=== PATIENT | male | born 1965 | race African-American/Black ===

== ENCOUNTER 2017-10-13 11:35 | Inpatient (IN) | payer BC, OTHER ==
[~2017-10-13] VITALS: Ht 180.3 cm; Wt 90.7 kg
--- NOTE | 2017-10-13 12:10 | NUR ---
PRE-ADMISSION NOTE Pt is a 52 y/o M, being admitted for ETOH withdrawal. Received pt at intake, A/Ox4, respirations even and unlabored. Initial VS are BP: 183/106, HR 77, RR:18, O2sat: 97%, T:97.7. Pt is sitting in intake room, with beads of sweat on forehead, appears withdrawn, soft spoken, appears anxious and restless, intermittently shaking his legs. Pt reports allergies to PCN. 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 Denies hx of SZ. Pt reports HX of psych hospitalization due to depression for 5 days in 2017. Pt reports he is currently homeless, living out of hotels and friends' homes. Pt reports he is currently unemployed. Family substance use HX of ETOH -mother, father. Pt verbalized having a good support system of family and friends. Pt reports he is currently having the following symptoms: "shakiness, heightened state of anxiety, nausea, light sensitivity, fatigue, sweating, restlessness." Pt reports having a HX of ETOH related delirium in the past. SUBSTANCE USE HX: 1. ETOH - WHISKEY (mostly), JIN and VODKA 2 pints or more and at least 12 beers daily x 6-7 months. Last use was yesterday 10/12/17 1100. First used @ 17 y/o. 2. Marijuana, smokes an 1/8th daily since age 16 y/o. Pt reports having multiple treatment hx, last being before relapse. Smokes 10 ciggarettes daily. mostly whiskey but also drink vodka and jin tx hx longest period of sobriety is 3 years in 2011 to 2015.
[2017-10-13] MEDS ORDERED: MAG HYDROX/AL HYDROX/SIMETH 30 ML LIQUID UDC PO PRN (12:30)
[2017-10-13] MEDS ORDERED: MAGNESIUM HYDROXIDE 30 ML LIQUID UDC PO PRN (12:30)
[2017-10-13] MEDS ORDERED: ONDANSETRON ODT 4 MG TAB.RAPDIS SL PRN (12:30)
[2017-10-13] MEDS ORDERED: LOPERAMIDE HCL 2 MG CAPSULE PO PRN ×2 (12:30)
[2017-10-13] MEDS ORDERED: IBUPROFEN 600 MG TABLET PO PRN (12:30)
[2017-10-13] MEDS ORDERED: LORAZEPAM 2 MG/1 ML VIAL IM PRN (12:30)
[2017-10-13] MEDS ORDERED: diphenhydrAMINE 50 MG CAPSULE PO PRN (12:30)
[2017-10-13] MEDS ORDERED: ONDANSETRON 4 MG/2 ML VIAL IM PRN (12:30)
[2017-10-13] MEDS ORDERED: 5 DAY TAPER VALIUM-SERENITY PROTOCOL PO PRN (12:30)
[2017-10-13] MEDS ORDERED: ACETAMINOPHEN 325 MG TABLET PO PRN (12:30)
[2017-10-13] MEDS ORDERED: LORAZEPAM 1 MG TABLET PO PRN ×2 (12:30)
[2017-10-13] MEDS ORDERED: MIRALAX 17 GM POWD.PACK PO PRN (12:30)
[2017-10-13] MEDS ORDERED: DICYCLOMINE HCL 20 MG TABLET PO PRN (12:30)
[2017-10-13 12:41] LABS: BASOPHILS # (AUTO) 0.1 K/uL (0.0-8.0); BASOPHILS % (AUTO) 1.1 % (0.0-2.0); EOSINOPHILS % (AUTO) 0.3 % (0.0-7.0); HEMATOCRIT 44.9 % (36.7-47.1); HEMOGLOBIN 14.9 g/dL (12.5-16.3); LYMPHOCYTES # (AUTO) 1.1 K/uL (20.0-40.0); LYMPHOCYTES % (AUTO) 19.6 % (20.5-51.5); MEAN CORPUSCULAR HEMOGLOBIN 28.8 uug (23.8-33.4); MEAN CORPUSCULAR HGB CONC 33 g/dL (32.5-36.3); MEAN CORPUSCULAR VOLUME 86.8 fL (73.0-96.2); MONOCYTES # (AUTO) 0.5 K/uL (2.0-10.0); MONOCYTES % (AUTO) 8.9 % (0.0-11.0); NEUTROPHILS # (AUTO) 3.9 K/uL (1.8-8.9); NEUTROPHILS % (AUTO) 70.1 % (38.5-71.5); PLATELET COUNT (AUTO) 243 K/uL (152-348); RED BLOOD CELL COUNT(AUTO) 5.18 MIL/uL (4.06-5.63); WHITE BLOOD COUNT (AUTO) 5.5 K/uL (3.6-10.2)
[2017-10-13 12:54] LABS: ALANINE AMINOTRANSFERASE 23 U/L (16-63); ALKALINE PHOSPHATASE 74 U/L (50-136); AMYLASE 63 U/L (25-115); ASPARTATE AMINOTRANSFERASE 13 U/L (15-37); BILIRUBIN,TOTAL 0.8 mg/dL (0.2-1.0); CARBON DIOXIDE 28 mmol/L (21-32); CHLORIDE 99 mmol/L (98-107); CREATININE 1.1 mg/dL (0.6-1.3); GLUCOSE 73 mg/dL (74-106); LIPASE 103 U/L (73-393); MAGNESIUM 2.3 mg/dL (1.8-2.4); POTASSIUM 3.4 mmol/L (3.5-5.1); TOTAL PROTEIN, SERUM 8.2 g/dL (6.4-8.2); UREA NITROGEN, BLOOD 18 mg/dL (7-18)
[2017-10-13] MEDS ORDERED: THIAMINE HCL 200 MG/2 ML VIAL IM ONE (13:07)
[2017-10-13 13:09] LABS: ETHANOL < 3 MG/DL (0-0)
[2017-10-13] MEDS ORDERED: TRAZ-182 PO (13:13)
[2017-10-13] MEDS ORDERED: AMLO10TA4 PO (13:13)
[2017-10-13] MEDS ORDERED: DIAZEPAM 10 MG TABLET PO ONE (13:15)
[2017-10-13] MEDS: CLONIDINE HCL 0.1 MG TABLET PO PRN ×2 (13:24→20:15)
[2017-10-13 14:06] LABS: *AMPHETAMINE, URINE NEGATIVE (NEGATIVE); *BARBITURATE, URINE NEGATIVE (NEGATIVE); *CANNABINOID, URINE POSITIVE (NEGATIVE); *COCCAINE, URINE NEGATIVE (NEGATIVE); *OPIATE, URINE NEGATIVE (NEGATIVE); *PHENCYCLIDINE SCREEN,URINE NEGATIVE (NEGATIVE)
--- NOTE | 2017-10-13 14:24 | NUR ---
REASSESSMENT Pt reports nausea has decreased. BP: 164/94 HR: 78.
[2017-10-13 14:25] VITALS: BP 164/94
[2017-10-13] MEDS: DIAZEPAM 10 MG TABLET PO SCH ×2 (15:19→20:15)
[2017-10-13 16:00] VITALS: BP 159/93
--- NOTE | 2017-10-13 16:00 | NUR ---
CIWA ASSESSMENT CIWA 12 @1600. Pt is currently resting in bed, arousable to name. Pt reports Valium has been effective for decreasing s/s of withdrawal to some degree; pt presents nausea, anxiety, agitation, gross tremors, restlessness, diaphoresis, sweat noticeable on forehead, hot flashes, light sensitivity and headache noted.
--- NOTE | 2017-10-13 16:44 | NUR ---
ADMISSION NOTE Pt is a 52 y/o M, being admitted for ETOH withdrawal. Received pt at intake, A/Ox4, respirations even and unlabored. Initial VS are BP: 183/106, HR 77, RR:18, O2sat: 97%, T:97.7. Ht: 5'11, WT: 200 lbs. Pt has beads of sweat on forehead, is withdrawn, soft spoken, appears anxious and restless, and intermittently shaking his legs and is odorous. Pt is self ambulatory without assistance and has a steady gait. Pt reports allergies to PCN. PMH of HTN, depression, anxiety. 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 Denies hx of SZ. Pt reports HX of psych hospitalization due to depression for 5 days in 2017. Pt reports he is currently homeless, living out of hotels and friends' homes and he is currently unemployed. Family substance use HX of ETOH -mother, father. Pt verbalized having a good support system of family and friends. PCP is Dr. Astudillo and has no psychiatrist at this time. Pt reports he is currently having the following symptoms: "shakiness, heightened state of anxiety, nausea, feeling tired, light sensitivity, fatigue, sweating, restlessness." Pt reports having a HX of ETOH related delirium in the past. Lungs sounds bilaterally clear, pt has productive cough; states he has had it for 2 weeks and it is from sinus infection. Cap refill wnl, good skin turgor. Abd soft and non-tender, bowels sounds clear on x4 quads. Pt reports losing around 20 lbs the last few months due to ETOH. Pt smokes 10 cigarettes daily. SUBSTANCE USE HX: 1. ETOH - WHISKEY (mostly), JIN and VODKA 2 pints or more and at least 12 beers daily x 6-7 months. Last use was yesterday 10/12/17 1100. First used @ 17 y/o. 2. Marijuana, smokes an 1/8th daily since age 16 y/o. Pt reports having multiple treatment hx, last tx was right before relapse. Treatment Hx: Pt states, "I have been to 6 or more treatment centers." 1. [facility] 2016 2. [facility] May 2016 3. [facility] (unknown date) Pt states he cannot recall other treatment centers and dates. longest period of sobriety is 3 years in 2011 to 2014. Pt stated, "I came in because I want to stop drinking and be get clean.. I feel like if I don't, I might ." Pt reported that his triggers are "domestic family problems," issues with his and financial issues. Pt verbalized that these were his triggers and stressors that caused him to relapse multiple times and were also barriers for him to stay sober. Pt reports he been to treatment more than 6 times. Pt states he suffered the consequences of poor health, loss of employment, and relationships with loved ones suffered due to drinking ETOH. Pt is highly motivated to stay clean and sober and verbalized that this admission is going to be different due to his willingness to surrender and determination. Pt's longest period of sobriety is 3 years in 2011 to 2014. Skin is intact and body check is completed. Educated pt with unit rules. Educated pt with med regimen. Educated pt with s/s to report and pt verbalized understanding. Encouraged pt to verbalize feelings about situation and sobriety. Encouraged pt to increase fluids as tolerated to facilitate in detox and to promote hydration. Side rails padded and upx2, bed is in lowest position. Call light within reach. Safety measures in place. Will continue to monitor.
--- NOTE | 2017-10-13 18:35 | NUR ---
PRN Clonidine 0.1 mg po prn and Zofran 4mg SL PRN given for c/o nausea and BP: 183/106. Will monitor and reassess. Addendum: 10/13/17 at 1838 by DEREK FOUNTAIN RN Correct time is 1324
--- NOTE | 2017-10-13 18:43 | NUR ---
END OF SHIFT Pt has been isolative in room since pt has been admitted. Last CIWA 22 @1600. Pt is currently laying in bed with tv on, a/ox4, respirations even and unlabored. Pt reports Valium has been effective for decreasing s/s of withdrawal to some degree. Pt ate 25% of dinner. Fluid intake 900 ml, voided x2, bm o. Encouraged pt to increase fluids as tolerated and verbalize feelings about situation. Safety measures in place. Will give endorsement to manufacturing supervisor 2nd shift.
--- NOTE | 2017-10-13 19:50 | NUR ---
Start of shift Note Received a 52 y/o male px, admitted today 10/13/2017 for medically supervised withdrawal from ETOH. Px was just placed on 5 day Valium taper started on 10/13/2017. Last reported CIWA 22 at 1600 by AM shift nurse. During the rounds at 1999, px is awake on bed resting lying on his right side. Px just woke up and looks drowsy. He is disheveled with flat affect. He also looks anxious and depressed. Px stated that his anxiety is 6/10. No complaints made at this time. Bed on lowest position, side rails up and call light within reach. Well continue to monitor.
[2017-10-13 20:00] VITALS: BP 160/105
--- NOTE | 2017-10-13 20:00 | NUR ---
CIWA 15 Px just woke up. Px appears anxious and depressed. Px has flat affect. He was given Zofran 4 mg SL around 1330 for nausea. It was effective. No complaints of pain at the moment. Bilateral hand tremors noted. We'll continue to monitor.
--- NOTE | 2017-10-13 20:15 | NUR ---
PRN Clonidine Px received Clonidine 0.1 mg/tab, 1 tab PO for BP= 160/105. We'll reassess after an hour.
[2017-10-13] MEDS ORDERED: POTASSIUM CHLORIDE 20 MEQ TAB.PRT.SR PO ONE (21:00)
[2017-10-13 21:15] VITALS: BP 148/100
--- NOTE | 2017-10-13 21:15 | NUR ---
CIWA 15 Reassessment of CIWA after an hour of administration of Valium 10 mg PO. Px still appears anxious and depressed. Px has flat affect. He was given Zofran 4 mg SL around 1330 for nausea today. It was effective. No complaints of pain at the moment. Bilateral hand tremors noted. We'll continue to monitor.
--- NOTE | 2017-10-13 21:15 | NUR ---
Reassessment of BP BP= 148/100 at the moment after an hour of administration of Clonidine 0.1 mg PO. We'll continue to monitor.
[2017-10-13] MEDS ORDERED: POTASSIUM CHLORIDE 10 MEQ TAB.PRT.SR PO ONE (21:30)
[2017-10-14] VITALS: BP 150/93
--- NOTE | 2017-10-14 | NUR ---
CIWA deferred CIWA deferred due to the px is asleep, to assess if the px is awake per doctor's order. We'll continue to monitor.
[2017-10-14 04:00] VITALS: BP 147/96
--- NOTE | 2017-10-14 04:00 | NUR ---
CIWA deferred CIWA deferred due to the px is asleep, to assess if the px is awake per doctor's order. We'll continue to monitor.
--- NOTE | 2017-10-14 07:10 | NUR ---
End of shift Note During the shift at 2014, K-Dur 40 mEq given PO as 1x dose for low K+ and Clonidine 0.1 mg PO for BP= 160/105, it was effective. Latest BP= 147/96 at 0400. Px oral intake 800 ml, voided 2x, without BM. Px slept for 10 hours. At 0630, px is asleep on bed in right side lying position. Last CIWA 15. Bed on lowest position, side rails up and call light within reach. Well continue to monitor. Px endorsed to AM shift nurse.
--- NOTE | 2017-10-14 07:45 | NUR ---
START OF SHIFT Rcvd endorse from ongoing nurse, client is in room, a/o x 4, he presents with anxious mood and flat affect, he is shaking, clammy skin, he stated, I feel real bad, my whole body is trembling, I am hot then cold every other minute, Im all sweaty, this is very, very hard, I dont think I can do this. Client appears disheveled, sweat noted on forehead, and tremors. Encourage client to attend group therapy to learn skills to maintain sober. Encourage client to increase PO fluid as tolerated to facilitate detox and rehydration. Last CIWA 15 @ 2100. PRN medications administered and noted per protocol. Seizure precautions in place. call light within reach.
[2017-10-14 08:06] LABS: BILIRUBIN,TOTAL 0.7 mg/dL (0.2-1.0); CREATININE 1.1 mg/dL (0.6-1.3); POTASSIUM 4.4 mmol/L (3.5-5.1); TOTAL PROTEIN, SERUM 6.8 g/dL (6.4-8.2)
[2017-10-14 08:19] VITALS: BP 169/101
[2017-10-14] MEDS: THIAMINE HCL 100 MG TABLET PO SCH (08:23)
[2017-10-14] MEDS: DIAZEPAM 10 MG TABLET PO SCH ×3 (08:23→20:42)
[2017-10-14] MEDS: AMLODIPINE 10 MG TABLET PO SCH (08:23)
[2017-10-14] MEDS: FOLIC ACID 1 MG TABLET PO SCH (08:23)
[2017-10-14] MEDS: MULTIVITAMINS,THERAPEUTIC TABLET PO SCH (08:23)
--- NOTE | 2017-10-14 08:23 | NUR ---
CIWA 18 CLIENT PRESENTS WITH ANXIETY, AGITATION, DIAPHORESIS, TREMORS, NAUSEA, DIFFICULTY CONCENTRATING, CHILLS/COLD, DECREASED APPETITE, RESTLESSNESS, AND FATIGUE. ENCOURAGE CLIENT TO INCREASE PO FLUID TO FACILITATE DETOX, REINFORCEMENT NEEDED. SCHEDULE VALIUM 10MG PO ADMINISTERED. CALL LIGHT WITHIN REACH.
--- NOTE | 2017-10-14 08:24 | NUR ---
PPD Test administered to R forearm.
[2017-10-14] MEDS ORDERED: TUBERCULIN,PURIF.PROT.DERIV. 5 TU/0.1 ML TEST ID ONE (09:00)
[2017-10-14 10:10] LABS: HEPATITIS B SURFACE AG Negative (Negative)
--- NOTE | 2017-10-14 10:34 | NUR ---
Chest XR impression: No acute cardiopulmonary disease. Addendum: 10/14/17 at 1825 by SARAHY CHÁVEZ RN WRONG CLIENT
[2017-10-14 12:00] VITALS: BP 140/84
--- NOTE | 2017-10-14 12:05 | NUR ---
CIWA 16 Client presents with anxiety, agitation, restlessness, sweats, nausea, feeling of fullness on his head, decreased appetite, chills, cold, restless legs, difficulty concentrating, and fatigue. Will continue to monitor.
[2017-10-14 16:00] VITALS: BP 142/88
--- NOTE | 2017-10-14 18:24 | NUR ---
CIWA 17 Client presents with anxiety, agitation, restlessness, sweats, nausea, MOLINA, decreased appetite, chills, cold, restless legs, difficulty concentrating, and fatigue. Will continue to monitor.
--- NOTE | 2017-10-14 19:09 | NUR ---
END OF SHIFT Endorse client to incoming nurse, client is in group therapy, a/o x 4, he continues to present with anxious mood, flat affect, abdominal cramps, chills, sweats, restless legs, and fatigue. Client is not compliant with group therapy due to above withdrawal symptoms. Adequate PO fluid intake 1600mL, void x 3. Consumes 50% of meals. Last CIWA 17 @ 1600. Seizure precautions in place. Call light within reach.
--- NOTE | 2017-10-14 19:30 | NUR ---
Start of Shift Pt admitted 10/13/18 for medically managed withdrawal from ETOH. Pt is listed as a full code with allergies to PCN and on a regular diet. Pt assessed in room, obviously diaphoretic, flat affect, soft speech, with c/o sweats, hands tremulous a tightness in his head but denies any H/A, hypoactive, dirty fingernails, room has an odor, poor dental hygiene. Pt appears depressed/anxious, sad and worried. Denies any SI/HI, N/V/D, 04/07 B/As. Pt has had 6 treatment centers in past with hx of w/d related confusion and delirium, and 5 days inpatient psyc in 2017 (Hx of depression/anxiety. Full safety measures remain in place, including fall/seizure with padded side rails x 2. Will continue to monitor for duration of shift and promptly attend to all s/sxs distress or w/d.
[2017-10-14 20:00] VITALS: BP 122/80
--- NOTE | 2017-10-14 20:00 | NUR ---
CIWA Assessment CIWA score of 15, aeb stomach cramps and decreased appetite, tremors, sweats and diaphoresis, anxiety and agitation, pt state head feels a "tightness".
[2017-10-14] MEDS: TRAZODONE 50 MG TABLET PO PRN (20:42)
--- NOTE | 2017-10-14 20:42 | NUR ---
PRN Med Trazodone 50mg PO given at 2041 for insomnia. Will continue to monitor for all s/sx's w/d or distress and reassess in 1 hour
--- NOTE | 2017-10-14 21:42 | NUR ---
PRN Reassessment Trazodone 50mg PO given 1 hour prior for insomnia. At present pt is sleeping, RR 16, even and nonlabored. Med effective.
[2017-10-15] VITALS: BP 156/92
--- NOTE | 2017-10-15 | NUR ---
Midnight Rounds VS's obtained. BP 156/92, HR 70, RR 16 with 99% SaO2. CIWA deferred due to pt somnalence. Will continue to monitor and promptly attend to any s/sx's w/d or distress
[2017-10-15] MEDS: CLONIDINE HCL 0.1 MG TABLET PO PRN ×4 (00:14→20:11)
--- NOTE | 2017-10-15 00:14 | NUR ---
PRN Med Clonidine 0.1mg PO given for anxiety, diaphoresis. Will continue to monitor for all s/sx's w/d or distress and reassess in 1 hour
--- NOTE | 2017-10-15 01:14 | NUR ---
PRN Reassessment Clonidine 0.1mg PO given 1 hour prior for anxiety, diaphoresis. At present pt is sleeping, RR 16, even and nonlabored, forehead exhibits decreased moisture. Med effective.
[2017-10-15 04:00] VITALS: BP 143/82
--- NOTE | 2017-10-15 04:00 | NUR ---
0400 rounds 0400 VS's obtained/stable. CIWA deferred due to pt somnalence. Pt able to deny pain. Will continue to monitor and attend promptly to any s/sx's w/d or distress noted.
--- NOTE | 2017-10-15 07:23 | NUR ---
End of Shift Endorsement given to oncoming day nurse. Pt admitted on the for medically managed withdrawal from ETOH starting day 3 of a 5 day Valium taper . S/sxs of w/d include increased anxiety, agitation/restlessness, sweats/diaphoresis, tremors, stomach cramps, and describes head as feeling atightness. Pt remained in bed for shift, somnolent, arousable to voice and oriented. Affect flat, speech soft, hypoactive but able to follow requests. ADLS not performed and pt remains disheveled, unkempt, and odorous Trazodone and Clonidine were PRNs for shift. Pt slept for 8 hours, with 500 mls intake and 1 void. Full safety measure remain in place, with bed locked and in lowest position, side rails up x 2, call pelaez within reach and frequent rounding.
--- NOTE | 2017-10-15 07:48 | NUR ---
Start of Shift Notes: Received patient in his room. Appears hypersomnolent when waking. Denies S/I or H/I noted. No AV hallucinations noted. He appears disheveled, unshaven, red eyes and appears irritable. Encouraged maintenance of personal hygiene and space. Patient is a 52 year old male admitted for ETOH withdrawal who was placed on a 5-day Valium taper as ordered. No adverse reactions noted. Educated patient on his current plan of care for the day and his medication regimen. Encouraged oral fluid intake and encouraged group participation to learn new skills to prevent relapse. Per night report, patient was given Trazodone and Clonidine. Slept for 8 hours. Last CIWA 15 at 1999. Will continue to monitor.
[2017-10-15 08:00] VITALS: BP 159/104
[2017-10-15] MEDS: THIAMINE HCL 100 MG TABLET PO SCH (08:11)
[2017-10-15] MEDS: FOLIC ACID 1 MG TABLET PO SCH (08:11)
[2017-10-15] MEDS: AMLODIPINE 10 MG TABLET PO SCH (08:11)
[2017-10-15] MEDS: MULTIVITAMINS,THERAPEUTIC TABLET PO SCH (08:11)
[2017-10-15] MEDS: DIAZEPAM 5 MG TABLET PO SCH ×4 (08:11→20:11)
--- NOTE | 2017-10-15 08:14 | NUR ---
Clonidine 0.1/Tylenol 650mg PO given: Patient's blood pressure 159/104. Denies any complains of chest pain or chest tightness. No complains of blurred vision noted. He reports "I have a headache, it's about a 4 out of 10 right now." Medicated patient with Clonidine 0.1mg PO and Tylenol 650 mg Po as ordered. Will monitor for effectiveness.
--- NOTE | 2017-10-15 08:44 | NUR ---
CIWA Assessment/MD Communication: CIWA 19, patient presented with nausea, gross tremors, anxiety, agitation, diaphoresis, mild to moderate headache, fatigue and sensitivity to light. He verbalizes, "Please turn off the lights when you leave. I like to keep the room dark." He also complains of generalized discomfort, describing it as being "feeling weird." He states that this is his usual feeling when he is experiencing withdrawals. Oral fluids encouraged. Notified MD of patient's CIWA score. Will continue with current taper orders at this time.
--- NOTE | 2017-10-15 09:14 | NUR ---
Re-assessment: Clonidine/Tylenol Patient verbalizes "My headache went away." BP re-assessed. BP is now 139/94. MI 75 while laying down. Will continue to monitor.
--- NOTE | 2017-10-15 11:39 | NUR ---
MD Communication: Blood Pressure Patient's blood pressure noted to be 159/104, pulse 68. Denies any pain. Denies any chest pain, blurred vision or lightheadedness. Notfied Dr. Truong with orders to change Clonidine PRN order to q 4hours PRN. MD is unable to enter orders at this time. Orders noted and carried out. Deep relaxation techniques were encouraged. Provided a safe and calming environment. Will continue to monitor.
[2017-10-15 12:00] VITALS: BP 155/105
--- NOTE | 2017-10-15 12:15 | NUR ---
CIWA Assessment/MD Communication: CIWA 15, patient continues to exhibit s/s of ETOH withdrawal m/b: gross tremors, anxiety, agitation, intermittent perspiration, mild headache, fatigue, generalized malaise and sensitivity to light. He states, "I just feel so weak and tired." Oral fluids encouraged. Notified MD Truong of patient's CIWA score. Will continue with current taper orders at this time.
--- NOTE | 2017-10-15 12:34 | NUR ---
Clonidine 0.1mg PO given: Patient's blood pressure 155/105. Denies any complains of headache, N/V, dizziness, nor chest pain. Medicated patient with Clonidine 0.1mg PO as ordered. Will monitor for effectiveness.
--- NOTE | 2017-10-15 13:34 | NUR ---
Re-assessment: Clonidine Patient's blood pressure decreased to 143/85. PRN Clonidine was effective in reducing his blood pressure.
[2017-10-15 16:00] VITALS: BP 137/90
--- NOTE | 2017-10-15 16:23 | NUR ---
[facility] Assessment: [facility] 14, patient states "I'm really detoxing today." He was noted with diaphoresis, gross tremors, malaise, fatigue, light sensitivity and anxiety. Will continue to monitor and offer support.
--- NOTE | 2017-10-15 19:04 | NUR ---
End of Shift Notes: Patient continues to be on 5-day Valium taper for ETOH withdrawal. Patient is currently on day 3. VS monitored closely. He has hx of HTN with noted blood pressure elevation during the day. MD is aware and changed PRN Clonidine order to q 4 hours PRN. Withdrawal symptoms were closely monitored. Initial CIWA 19, patient presented with nausea, gross tremors, anxiety, agitation, depressed mood, diaphoresis, mild headache, fatigue and sensitivity to light. He self isolates and sleeps for most of the day despite encouragement to attend group. He was unable to attend group and activities due to his withdrawal symptoms. PRN Tylenol and Clonidine x 2 were given at 0814 and at 1234 with help. Last CIWA 14 at 1600. Patient verbalizes that Valium has been effective in reducing his withdrawal symptoms. Oral fluids encouraged. All needs met and attended. Will continue to monitor.
--- NOTE | 2017-10-15 19:52 | NUR ---
START OF SHIFT NOTE Rcvd report from outgoing nurse, pt is currently in his room. Pt is a 52 y/o male A/O to person, place, time, and purpose. Pt was admitted for medically supervised withdrawal from ETOH. Pt is on day 3 of a 5 day Valium taper. Pt is c/o abdominal cramping, body aches, sweats, and anxiety. Pt has been presenting w/ depressed and withdrawn mood, isolative, blunt affect, tremors, and fidgetiness. Pt has a medical h/o HTN. PRN Clonidine and Tylenol were given for elevated BP and headache, noted effective. Last CIWA 14 @ 1600. Call light is within reach. Pt will continue to be monitored and needs met.
[2017-10-15 20:00] VITALS: BP 151/101
--- NOTE | 2017-10-15 20:00 | NUR ---
CIWA ASSESSMENT CIWA 15. Pt c/o abdominal cramping, tremors, body aches, sweating, and anxiety. Pt presenting w/ depressed and withdrawn mood and agitation. V/S: T:98.1, P:79, RR:16, SPO2:100, and BP:151/101.
--- NOTE | 2017-10-15 20:11 | NUR ---
PRN CLONIDINE ADMINISTRATION Clonidine 0.1mg given for elevated BP of 151/101. Pt denies dizziness and light headedness. Will reassess pt in 1 hr.
--- NOTE | 2017-10-15 21:35 | NUR ---
PRN CLONIDINE REASSESSMENT Pt's BP IS 154/108. Pt still denies dizziness and light headedness. Will notify MD of continued elevated BP.
[2017-10-15] MEDS: TRAZODONE 50 MG TABLET PO PRN (21:40)
--- NOTE | 2017-10-15 21:40 | NUR ---
PRN TRAZODONE ADMINISTRATION Trazodone 50mg given, pt c/o difficulty falling and staying asleep. Will reassess pt in 1 hr.
[2017-10-15] MEDS ORDERED: CLONIDINE HCL 0.2 MG TABLET PO ONE (22:00)
--- NOTE | 2017-10-15 22:23 | NUR ---
PRN CLONIDINE ADMINISTRATION Clonidine 0.2mg given per MD for elevated BP of 154/108. Will reassess pt in 1 hr.
--- NOTE | 2017-10-15 22:40 | NUR ---
PRN TRAZODONE REASSESSMENT Pt is in bed. Pt's respirations are even and unlabored. Pt denies dizziness and light headedness.
--- NOTE | 2017-10-15 23:23 | NUR ---
PRN CLONIDINE REASSESSMENT Pt is in bed w/ his eyes closed. Pt's respirations are unlabored and even.
--- NOTE | 2017-10-16 | NUR ---
CIWA DEFERRED Pt is in bed w/ his eyes closed. Pt's respirations are unlabored and even.
--- NOTE | 2017-10-16 04:00 | NUR ---
CIWA DEFERRED Pt is in bed w/ his eyes closed. Pt's respirations are unlabored and even.
--- NOTE | 2017-10-16 07:19 | NUR ---
END OF SHIFT NOTE Endorsed pt to oncoming nurse, pt is currently in his room. Pt is a 52 y/o male A/O to person, place, time, and purpose. Pt was admitted for medically supervised withdrawal from ETOH. Pt completed day 3 of a 5 day Valium taper. Pt is c/o abdominal cramping, body aches, sweats, and anxiety. Pt has been presenting w/ depressed and withdrawn mood, isolative, blunt affect, tremors, and fidgetiness. Pt has a medical h/o HTN. PRN Clonidine 0.1mg given @ 2010for elvated BP of 151/101, noted ineffective. PRN Trazodone 50mg given @ 2139 for insomnia, note effective. PRN Clonidine 0.2mg given @ 2222 for elevated BP of 154/108, noted effective. Pts fluid intake was 1200ml and he voided 1 time. Pt slept for 6.75 hrs. Last CIWA 15 @ 1999. Call light is within reach.
--- NOTE | 2017-10-16 07:37 | NUR ---
Start of Shift Notes: Received patient in his room. Appears hypersomnolent when waking. Upon waking, he appears guarded, worried, irritable, and pre-occupied. Denies S/I or H/I noted. No AV hallucinations noted. Room is odorous and messy. Encouraged maintenance of personal hygiene and space. Patient is a 52 year old male admitted for ETOH withdrawal who was placed on a 5-day Valium taper as ordered. No adverse reactions noted. Educated patient on his current plan of care for the day and his medication regimen. Encouraged oral fluid intake and encouraged group participation to learn new skills to prevent relapse. Per night report, patient was given Clonidine x 2 due to blood pressure elevation. Slept for 7 hours. Last CIWA 15.. Will continue to monitor.
[2017-10-16 08:00] VITALS: BP 137/105
--- NOTE | 2017-10-16 08:00 | NUR ---
[facility] Assessment/MD Communication: Patient's CIWA 19, patient presented with malaise, fatigue, anxiety, agitation, gross tremors, decreased appetite, abdominal spasms, irritability, cognitive dissonance, nervousness, emotional volatility and reports of vivid dreams. Patient states "Oh boy, I'm detoxing hard this AM." Reassurance provided. Will medicate patient as ordered. Notified Dr. Bergeron who is in the unit at this time. Will continue to monitor.
[2017-10-16] MEDS: FOLIC ACID 1 MG TABLET PO SCH (08:23)
[2017-10-16] MEDS: MULTIVITAMINS,THERAPEUTIC TABLET PO SCH (08:24)
[2017-10-16] MEDS: AMLODIPINE 10 MG TABLET PO SCH (08:24)
[2017-10-16] MEDS: THIAMINE HCL 100 MG TABLET PO SCH (08:24)
[2017-10-16] MEDS: CLONIDINE HCL 0.1 MG TABLET PO PRN ×3 (08:25→20:50)
[2017-10-16] MEDS: DIAZEPAM 5 MG TABLET PO SCH ×3 (08:25→20:50)
--- NOTE | 2017-10-16 08:25 | NUR ---
Clonidine 0.1mg PO given: Patient's blood pressure 137/105, pulse 65 while laying in bed. Denies any complains of headache, dizziness, chest pain or chest tightness. He appears anxious and worried. Reassurance and calm, safe environment provided. PRN Clonidine 0.1mg PO was given as ordered. Will monitor for effectiveness
--- NOTE | 2017-10-16 09:25 | NUR ---
Re-assessment: Clonidine/MD Communication Patient's blood pressure 139/100. Clonidine 0.1mg PO ineffective. Notified Dr. Bergeron who is in the unit at this time and orders will be entered.
[2017-10-16] MEDS: PROPRANOLOL HCL 20 MG TABLET PO SCH ×2 (10:11→20:50)
[2017-10-16 12:00] VITALS: BP 157/108
--- NOTE | 2017-10-16 12:00 | NUR ---
CIWA Assessment: CIWA 16, patient continues to exhibit s/s of withdrawal m/b anxiety, agitation, feelings of fatifue, malaise, nervousness, decreased appetite, emotional volatility. Denies S/I or H/I noted. He continues to sleep during the day although discouraged. Will continue to monitor.
--- NOTE | 2017-10-16 12:28 | NUR ---
Clonidine 0.1mg PO given: Patient noted with BP 157/108, Pulse 68 while at rest. Denies any complains of chest pain, chest discomfort, headache, dizziness or blurred vision. Medicated patient with Clonidine 0.1mg PO as ordered. Instructed patient to avoid caffeine intake and discouraged smoking. Will monitor for effectiveness.
--- NOTE | 2017-10-16 13:28 | NUR ---
Re-assessment: Clonidine Blood pressure 141/89, Pulse 68. PRN Clonidine was effective in reducing his blood pressure.
[2017-10-16 16:00] VITALS: BP 139/89
--- NOTE | 2017-10-16 16:41 | NUR ---
CIWA Assessment: CIWA 14, patient was noted to be in his room. He appears disheveled. Affect is flat. He verbalizes "Man, i feel so weak." He appears anxious, restless, diaphoretic and worried. He states "Maybe I just need to get some air." Encouraged patient to verbaliz his feelings and concerns. Redirection provided. All needs met and attended. Will continue to monitor.
--- NOTE | 2017-10-16 19:04 | NUR ---
End of Shift Notes: Patient continues to be on 5-day Valium taper for ETOH withdrawal. Patient is currently on day 3. VS monitored closely. Has hx of HTN with noted blood pressure elevation during the day. MD is aware and added Propranolol as ordered. Withdrawal symptoms were closely monitored. Initial CIWA 19, patient presented with nausea, gross tremors, anxiety, agitation, depressed mood, diaphoresis, mild headache, fatigue, irritability, cognitive dissonance, nervousness, abdominal spasms, vivid dreams, sensitivity to light and generalized discomfort. He self isolates and sleeps for most of the day despite encouragement to attend group. He was unable to attend group and activities due to his withdrawal symptoms. PRN Clonidine 0.1mg PO given at 0825 and 1228 for elevated blood pressure. Last CIWA 14 at 1600. Patient verbalizes that Valium has been effective in reducing his withdrawal symptoms. Oral fluids encouraged. All needs met and attended. Will continue to monitor.
--- NOTE | 2017-10-16 19:30 | NUR ---
START OF SHIFT Pt is a 52 y/o male admitted on 10/13/17 for ETOH withdrawal. Pt is on a 5 day Vlaium taper that started on 10/13/17 , tolerating well. Last CIWA 14 and PRN Clonidine x 2 administered during day shift. Upon assessment pt presents with anxiety, flat affect, sweats, chills, tremors, photosensitivity, poor appetite, restlessness, elevated BP, difficulty falling and staying asleep, and is isolative. Medications due. Safety measures in place. Call light within reach. Will continue to monitor.
[2017-10-16 20:00] VITALS: BP 151/102
--- NOTE | 2017-10-16 20:00 | NUR ---
CIWA ASSESSMENT CIWA 16. Pt presents with anxiety, flat affect, sweats, chills, tremors, photosensitivity, poor appetite, restlessness, elevated BP, difficulty falling and staying asleep, and is isolative. Pt states, "I feel very jittery."
[2017-10-16] MEDS: TRAZODONE 50 MG TABLET PO PRN (20:50)
--- NOTE | 2017-10-16 20:50 | NUR ---
PRN TRAZODONE AND CLONIDINE ADMINISTRATION Pt requests sleep aid for difficulty falling and staying asleep. Pt presents with anxiety, agitation, sweats, chills and BP 151/102 and HR 66. Safety measures in place. Call light within reach. Will continue to monitor.
[2017-10-16 21:50] VITALS: BP 141/100
--- NOTE | 2017-10-16 21:51 | NUR ---
PRN CLONIDINE AND TRAZODONE REASSESSMENT Pt laying in bed with eyes closed, Trazodone noted effective. BP 141/100 and HR 68. Safety measures in place. Call light within reach. Will continue to monitor.
[2017-10-17] VITALS: BP 134/86
--- NOTE | 2017-10-17 | NUR ---
CIWA DEFERRED Pt laying in bed with eyes closed, CIWA deferred, to be assessed when pt is awake per orders. Respirations even and unlabored. Safety measures in place. Call light within reach. Will continue to monitor.
[2017-10-17 04:00] VITALS: BP 138/91
--- NOTE | 2017-10-17 07:05 | NUR ---
END OF SHIFT Pt is a 52 y/o male admitted on 10/13/17 for ETOH withdrawal. Pt is on a 5 day Valium taper that started on 10/13/17 , tolerating well. Pt presented with anxiety, flat affect, sweats, chills, tremors, photosensitivity, poor appetite, restlessness, elevated BP, difficulty falling and staying asleep, and was isolative. Scheduled medications and PRN Trazodone and Clonidine administered, effective in S/S of withdrawal as verbalized by pt. Last CIWA 16. Pt slept 7 hours. Intake 1091 ml, void x 2, stool x 0. Safety measures in place. Call light within reach. Pts needs have been met. Endorsed to day shift nurse.
--- NOTE | 2017-10-17 07:25 | NUR ---
Start of Shift Notes: Received patient in his room. Alert and verbally responsive. He is noted to be irritable with flat affect. Short on his answers. Denies S/I or H/I noted. No AV hallucinations noted. Room is odorous and messy.He appears disheveled, unshaven and odorous. Encouraged maintenance of personal hygiene and space. Patient is a 52 year old male admitted for ETOH withdrawal who was placed on a 5-day Valium taper as ordered. No adverse reactions noted. Educated patient on his current plan of care for the day and his medication regimen. Encouraged oral fluid intake and encouraged group participation to learn new skills to prevent relapse. Per night report, patient was given PRN Clonidine, and Trazodone for sleep and blood pressure. Slept for 7 hours. Last CIWA 16. Will continue to monitor.
[2017-10-17 08:00] VITALS: BP 157/95
[2017-10-17] MEDS: DIAZEPAM 5 MG TABLET PO SCH ×2 (08:11→20:15)
[2017-10-17] MEDS: FOLIC ACID 1 MG TABLET PO SCH (08:11)
[2017-10-17] MEDS: AMLODIPINE 10 MG TABLET PO SCH (08:11)
[2017-10-17] MEDS: PROPRANOLOL HCL 20 MG TABLET PO SCH ×2 (08:11→20:16)
[2017-10-17] MEDS: THIAMINE HCL 100 MG TABLET PO SCH (08:11)
[2017-10-17] MEDS: MULTIVITAMINS,THERAPEUTIC TABLET PO SCH (08:11)
--- NOTE | 2017-10-17 08:51 | NUR ---
[facility] Assessment: [facility] 19, patient presented with irritability, anxiety, agitation, headache, malaise, fatigue, dyspepsia, poor appetite, frequent nocturnal awakenings and increase emotional amplitude, tremulousness, and generalized discomfort. He states "I keep on waking up at night and I feel like I have no energy today." Addendum: 10/17/17 at 0853 by BOO MCMAHAN LVN Support provided. Offered PRNs meds. VS stable. Will continue to monitor. Notified
[2017-10-17] MEDS ORDERED: TRAZODONE 50 MG TABLET PO PRN (09:00)
[2017-10-17 12:00] VITALS: BP 142/95
--- NOTE | 2017-10-17 12:42 | NUR ---
CIWA Assessment: CIWA 14, patient continue to present with anxiety, agitation, gross tremors, mild light sensitivity. No S/I or H/I noted. Denies AV hallucinations. He complains of fatigue during the day. Encouraged activity during the day and encouraged to go to group. Will continue to monitor and incrase oral fluid intake. All needs met and attended. Will continue to monitor.
--- NOTE | 2017-10-17 14:00 | NUR ---
Therapist prompted client to attend group sessions.
[2017-10-17 16:00] VITALS: BP 140/94
--- NOTE | 2017-10-17 16:30 | NUR ---
CIWA Assessment: CIWA 12, patient continues to exhibit s.s of withdrawal m/b anxiety, agitation, flat affect, depressed mood, fatigue, dyspepsia and tremors. Offered PRNs. Support provided. Will continue to monitor.
--- NOTE | 2017-10-17 19:04 | NUR ---
End of Shift Notes: Patient continues to be on 5-day Valium taper for ETOH withdrawal. Patient is currently on day 4. VS monitored closely due to dx of HTN. No s/s of hypo/HTN noted. Withdrawal symptoms were closely monitored. Initial CIWA 18, patient presented with nausea, gross tremors, anxiety, agitation, depressed mood, diaphoresis, mild headache, fatigue, irritability, cognitive dissonance, nervousness, abdominal spasms, vivid dreams, sensitivity to light and generalized discomfort. He self isolates and sleeps for most of the day despite encouragement to attend group. Requires encouragement to participate in group and activities. CIWA 12 at 1600. Patient verbalizes that Valium has been effective in reducing his withdrawal symptoms. Oral fluids encouraged. All needs met and attended. Will continue to monitor.
--- NOTE | 2017-10-17 19:40 | NUR ---
Start of Shift Note Received 52 y/o male px, admitted for medically supervised withdrawal from ETOH. Px was placed on 5 day Valium taper started on 10/13/2017. Px is tolerating it. Px has HTN. Last reported CIWA 12 by AM shift nurse. During the rounds at 1940, px is awake on bed in fowlers position watching TV. Px appears, anxious, and depressed. Px is disheveled and odorous. Px stated "My anxiety is 7/10." No complaints made. Bed on lowest position, side rails up 2x and call light within reach. We'll continue to monitor.
[2017-10-17 20:00] VITALS: BP 156/99
--- NOTE | 2017-10-17 20:00 | NUR ---
CIWA 13 Px appears anxious and depressed. Px has poor eye contact. Px is disheveled and odorous. Px stated that his anxiety is 7/10. Bilateral tremors noted to be minimal. No complaints of pain made.
[2017-10-17] MEDS: TRAZODONE 100 MG TABLET PO PRN (20:15)
--- NOTE | 2017-10-17 20:15 | NUR ---
PRN Desyrel Px received Desyrel 100 mg/tab, 1 tab PO for insomnia. We'll continue to monitor.
--- NOTE | 2017-10-17 21:15 | NUR ---
CIWA 13 rechecked after Valium Px still appears anxious and depressed. Px has poor eye contact. Px is disheveled and odorous. Px stated that his anxiety is 7/10. Bilateral tremors noted to be minimal. No complaints of pain made.
[2017-10-18] VITALS: BP 171/107
--- NOTE | 2017-10-18 | NUR ---
CIWA 11 Px woke up for VS taking. Px appears drowsy, anxious and depressed. Px has poor eye contact. Px is disheveled and odorous. Px stated that his anxiety is 5/10. Bilateral tremors noted to be minimal. No complaints of pain made.
[2017-10-18] MEDS: CLONIDINE HCL 0.1 MG TABLET PO PRN ×2 (00:13→12:25)
--- NOTE | 2017-10-18 00:13 | NUR ---
PRN Clonidine Px received Clonidine 0.1 mg/tab, 1 tab PO for BP= 171/107. To recheck after an hour.
--- NOTE | 2017-10-18 01:15 | NUR ---
Reassessment of BP Px is asleep on bed. BP= 144/93 with NJ= 75. We'll continue to monitor.
[2017-10-18 04:00] VITALS: BP 140/96
--- NOTE | 2017-10-18 04:00 | NUR ---
CIWA deferred CIWA deferred due to the px is asleep, to assess if the px is awake per doctor's order. We'll continue to monitor.
--- NOTE | 2017-10-18 07:05 | NUR ---
End of Shift Note During the shift at 2014, px received Desyrel 100 mg PO for insomnia. It was effective. At 12, px received Clonidine 0.1 mg PO for BP= 171/107. It was effective. Latest BP= 140/96 at 0400. Px oral intake is 1200 ml, voided 2x without BM. Px slept for 8 hours. Last CIWA 11 at 0000. Bed on lowest position, side rails up 2x and call light within reach. We'll continue to monitor. Endorsed to AM shift nurse.
[2017-10-18 08:00] VITALS: BP 167/107
--- NOTE | 2017-10-18 08:00 | NUR ---
Start of Shift Notes: Report received from navy fighter pilot nurse. Previous CIWA 11 at 0000. Pt slept for 8 hours. Upon start of shift, pt was in bed with eyes closed. During assessment, pt is AOx3. Respirations even and unlabored. Radial pulse is regular and non-bounding. Abdomen soft and non-tender. Skin is warm and dry. Pt denies pain at this time. BP still noted to be elevated, 0900 medications to be given during med pass. Pt has completed 5-day Valium taper to manage withdrawal symptoms and is scheduled to be discharged tomorrow. CIWA 7. Bed in lowest position. Side rails up x2. Call light functioning and within reach. All needs attended and met. Will continue to monitor.
[2017-10-18] MEDS: THIAMINE HCL 100 MG TABLET PO SCH (08:45)
[2017-10-18] MEDS: PROPRANOLOL HCL 20 MG TABLET PO SCH ×2 (08:45→21:18)
[2017-10-18] MEDS: AMLODIPINE 10 MG TABLET PO SCH (08:46)
[2017-10-18] MEDS: MULTIVITAMINS,THERAPEUTIC TABLET PO SCH (08:46)
[2017-10-18] MEDS: FOLIC ACID 1 MG TABLET PO SCH (08:46)
--- NOTE | 2017-10-18 11:00 | NUR ---
Report Received Assumed care of patient for rest of shift
[2017-10-18 12:00] VITALS: BP 160/106
--- NOTE | 2017-10-18 12:16 | NUR ---
PRN CLONIDINE BP 154/109 Clonidine 0.1mg po given Will reassess
--- NOTE | 2017-10-18 12:17 | NUR ---
CIWA 9 Withdrawal symptoms include increased BP 154/109, anxiety, irritability and bilateral hand tremors. Clonidine 0.1 MG Po given for BP
--- NOTE | 2017-10-18 13:15 | NUR ---
PRN Reassess BP 133/91 ( was 154/107) Clonidine 0.1 MG PO effective, continue to monitor
[2017-10-18 16:00] VITALS: BP 160/94
--- NOTE | 2017-10-18 16:00 | NUR ---
KINGWA 9 patients withdrawal symptoms present as lethargy , increased blood pressure, anxiety and irritability. Clonidine was given for increased BP with positive effects
--- NOTE | 2017-10-18 19:00 | NUR ---
End Of Shift: Patient is a 52 yr old male who was admitted to [facility] on 10/13/17 for a medically supervised withdrawal from Alcohol ( Whiskey/Beer), he has completed a 5 day Valium taper and is to be discharged tomorrow to [facility]. He has a history of hypertension which is being treated with scheduled Propranolol, Norvasc and PRN Clonidine. Today he had a blood pressure reading that required PRN Clonidine which had positive effects in reducing his blood pressure. He has been isolative to his room most of the day except for going to the patio to smoke, encouraged to attend groups but he declined. He had a fluid intake of 1500 ML, 4 Voids and 1 BM. Last CIWA was 9 @ 1600. Continue to follow MD plan of care and offer support as needed. Endorsed to night assistant.
--- NOTE | 2017-10-18 19:15 | NUR ---
START OF SHIFT Patient is a 52-year-old male admitted on 10/13/17 for ETOH withdrawal. Patient has completed a 5-day Valium taper, tolerated well, scheduled for discharge tomorrow. Patients last CIWA was 9 per day shift. Patient received PRN Clonidine today; noted to be effective in lowering BP. Upon assessment, patient is alert and oriented, quiet and withdrawn with a pleasant demeanor. Patient states, Im ready to leave tomorrow. Patient complains of anxiety stating, Its manageable. Patient is on fall and seizure precautions with no history of seizure. Safety measures in place, side rails up x2, bed locked in low position, call light within reach. Will continue to monitor.
[2017-10-18 20:00] VITALS: BP 155/100
--- NOTE | 2017-10-18 20:00 | NUR ---
CIWA 8 Patient has a CIWA score of 8. He is anxious, restless, and sweats on and off. Will administer medications as ordered and continue to monitor.
[2017-10-18] MEDS: TRAZODONE 100 MG TABLET PO PRN (21:18)
--- NOTE | 2017-10-18 21:18 | NUR ---
PRN TRAZODONE Patient reports difficulty sleeping and requests sleep aid. PRN Trazodone given PO. Safety measures in place, side rails up x2, bed locked in low position, call light within reach. Will monitor for effectiveness.
--- NOTE | 2017-10-18 22:18 | NUR ---
PRN TRAZODONE REASSESSMENT Patient states that he feels sleepy and is ready for bed. PRN Trazodone effective. Safety measures in place, side rails up x2, bed locked in low position, call light within reach. Will continue to monitor.
[2017-10-19] VITALS: BP 157/86
--- NOTE | 2017-10-19 | NUR ---
CIWA DEFERRED CIWA is deferred at this time due to patient sleeping; to be assessed and scored while patient is awake, per protocol. Patient has a BP of 157/86 but denies headache or discomfort at time of assessment. Respirations even and unlabored. Safety measures in place, side rails up x2, bed is locked in low position, call light within reach. Will continue to monitor.
[2017-10-19] MEDS ORDERED: PROP20TA19 PO (00:12)
[2017-10-19] MEDS ORDERED: TRAZ-214 PO (00:12)
[2017-10-19] MEDS ORDERED: CLON0.1T14 PO (00:12)
[2017-10-19 04:00] VITALS: BP 160/90
--- NOTE | 2017-10-19 04:00 | NUR ---
CIWA DEFERRED CIWA deferred at this time due to patient sleeping; to be assessed while patient is awake, per protocol. Respirations even and unlabored. Safety measures in place, side rails up x2, bed locked in low position, call light within reach. Will continue to monitor.
--- NOTE | 2017-10-19 06:45 | NUR ---
CIWA 7 Patient is awake and would like to take a shower before the morning's activities and discharge. Patient has a current CIWA of 7, for anxiety, some agitation, mild diaphoresis, and some restlessness. Safety measures in place, side rails up x2, bed locked in low position, call light within reach. Will continue to monitor.
--- NOTE | 2017-10-19 07:14 | NUR ---
END OF SHIFT Patient is a 52-year-old male admitted on 10/13/17 for ETOH withdrawal. Patient has completed a 5-day Valium taper, tolerated well, scheduled for discharge today. Patients last CIWA was 7. Patient received PRN Trazodone, which was effective. Patient slept for 7 hours, total intake of 1,082mL, void x2, stool x0. Patient has taken a shower this morning and is preparing his belongings for discharge. Patient is on fall and seizure precautions with no history of seizure. Safety measures in place, side rails up x2, bed locked in low position, call light within reach. Will endorse to day shift.
--- NOTE | 2017-10-19 07:30 | NUR ---
Start of Shift Propeller Tester received report on 52 year old male admitted to [facility] on 10/13/17 and scheduled for discharge this am. Pt is admitted for medical management of ETOH withdrawals. Pt endorses allergies to PCN, is a full code and eats a regular diet. Pt endorses PMH of HTN and PPH of anxiety, depression and insomnia. Pt has completed a Valium taper with last CIWA 7, recorded at 0645 per report. Pt was administered Trazodone(Insomnia), as PRN medication, per NOC report. Propeller Tester encounters pt in pts room with staff present as pt shaves. Pt is A/O x4 and makes needs known. Pt has a linear thought process and has a clear speech pattern. Pt with a flat affect and congruent mood. Pt is anxious about discharge, mortgage underwriter educated pt on discharge process with no further comments, questions or concerns voiced. Bed in low position with wheels locked and side rails up x2. Will continue to monitor, support and encourage according to plan of care.
[2017-10-19 08:38] VITALS: BP 135/89
[2017-10-19 08:48] VITALS: BP 135/89
[2017-10-19] MEDS: PROPRANOLOL HCL 20 MG TABLET PO SCH (08:48)
[2017-10-19] MEDS: FOLIC ACID 1 MG TABLET PO SCH (08:48)
[2017-10-19] MEDS: MULTIVITAMINS,THERAPEUTIC TABLET PO SCH (08:48)
[2017-10-19] MEDS: THIAMINE HCL 100 MG TABLET PO SCH (08:48)
[2017-10-19] MEDS: AMLODIPINE 10 MG TABLET PO SCH (08:48)
--- NOTE | 2017-10-19 09:50 | NUR ---
Discharge Pt educated on discharge educational material and information contained in discharge pack. Pt educated on medication regime including name, route, timing dose and indication. Pt provided with copies of all discharge material including reading educational material and labs. Pt provided with prescriptions for discharge medications. Pt had all personal belongings returned. No home medication to return. Pt is A/O x4 and makes needs known. Pt is calm and cooperative, although anxious about discharge. Pt with a linear thought and clear speech pattern. Pt denies SI/HI and A/VH. Pt escorted to waiting private car for transportation to RTC.
== END 2017-10-19 09:50 | disposition other institution (70) | DRG 895 ==
LOC: SRC 11:35
PROVIDERS: ADMIT Family Medicine Addiction Medicine; ATTEND Family Medicine Addiction Medicine
PROC: HZ2ZZZZ Detoxification Services for Substance Abuse Treatment (ICD-10-PCS; principal; 2017-10-13)
PROC: HZ41ZZZ Group Counseling for Substance Abuse Treatment, Behavioral (ICD-10-PCS; 2017-10-18)
DX: F10.230 Alcohol dependence with withdrawal, uncomplicated (principal); Y90.0 Blood alcohol level of less than 20 mg/100 ml; Z59.0 Homelessness; E87.6 Hypokalemia; I10 Essential (primary) hypertension; F32.9 Major depressive disorder, single episode, unspecified; G47.00 Insomnia, unspecified; F17.210 Nicotine dependence, cigarettes, uncomplicated; F12.10 Cannabis abuse, uncomplicated
CPT/HCPCS: 36415; 70030-TC; 80307; 80349; 83690; 83735; 85025; 86580; 86592; 86705; 86803; 87340; 87806; A4663; G0480; J3411; Q0162